=== PATIENT | female | born 1995 | race Caucasian/White ===

== ENCOUNTER 2021-01-13 14:04 | Emergency (ER) | payer OTHER ==
[~2021-01-13 14:04] MED LIST: KEFLEX250 MG PO; LORCET PLUS 7.1 EACH PO; METROGEL 0.75%45 GM VG; NAPROXEN500 MG PO
[2021-01-13 18:51] LABS: BASOPHIL 0.4 % (0-2); EOSINOPHIL 1.3 % (0-5); HGB 11.4 g/dl (12.5-16.0); LYMPHOCYTE 34.8 % (15-48); MCH 28.6 pg (25.0-31.0); MCHC 32.6 g/dL (32.0-36.0); MCV 87.7 fL (78.0-100.0); MONOCYTE 10.6 % (0-12); MPV 10.7 fL (6.0-9.5); NEUTROPHIL 52.7 % (41-80); NRBC 0; PLT 176 K/uL (150-400); RBC 3.99 M/uL (4.20-5.40); RDW 14.6 % (11.5-14.0); WBC 4.5 K/uL (4.0-10.5)
[2021-01-13 19:16] LABS: ALBUMIN 3.4 g/dL (3.4-5.0); BILIRUBIN - TOTAL 0.1 mg/dL (0.2-1.0); BUN/CREAT RATIO (CALC) 12.9 RATIO; CREATININE 0.7 mg/dL (0.51-0.95); GLOBULIN (CALCULATION) 3.5 g/dL; POTASSIUM 3.8 mmol/L (3.5-5.1); TOTAL PROTEIN 6.9 g/dL (6.4-8.2)
[2021-01-13] MEDS ORDERED: PHENERGAN25 M1 PO (19:49)
[2021-01-13] MEDS ORDERED: ULTRAM50 MG PO (19:49)
[2021-01-13] MEDS ORDERED: NAPROXEN500 MG PO (19:49)
[2021-01-13 20:10] LABS: BILIRUBIN NEGATIVE (NEGATIVE); BLOOD NEGATIVE Ery/uL (NEGATIVE); CLARITY CLEAR (CLEAR); COLOR YELLOW (YELLOW); GLUCOSE (U) NORMAL (NORMAL); LEUKOCYTES 1+ Leu/uL (NEGATIVE); NITRITE NEGATIVE (NEGATIVE); PROTEIN NEGATIVE (NEGATIVE); UROBILINOGEN 0.2 mg/dL (0.2-1.0); pH 6.5 (5.0-9.0)
[2021-01-13 20:15] LABS: URINARY WBC RARE
[2021-01-13 20:16] LABS: BACTERIA 1+
== END 2021-01-13 20:10 | disposition home or self-care (01) ==
LOC: FER 14:04
PROVIDERS: Emergency Medicine
DX: R51.9 Headache, unspecified (principal); U07.1 COVID-19; Z88.5 Allergy status to narcotic agent
CPT/HCPCS: 36415; 80053; 81001; 85025; J1170; J1885; J2550; J7030; U0002

== ENCOUNTER 2021-12-19 12:38 | Emergency (ER) | payer OTHER ==
[~2021-12-19 12:38] MED LIST changes: +PHENERGAN25 M1 PO; +ULTRAM50 MG PO
[2021-12-19 13:11] LABS: BILIRUBIN NEGATIVE (NEGATIVE); BLOOD NEGATIVE Ery/uL (NEGATIVE); CLARITY CLEAR (CLEAR); COLOR YELLOW (YELLOW); GLUCOSE (U) NORMAL (NORMAL); LEUKOCYTES 2+ Leu/uL (NEGATIVE); NITRITE NEGATIVE (NEGATIVE); PROTEIN NEGATIVE (NEGATIVE); SPECIFIC GRAVITY 1.025 (1.001-1.030); UROBILINOGEN 0.2 mg/dL (0.2-1.0)
[2021-12-19 13:16] LABS: HCG (URINE) SCREEN NEGATIVE (NEGATIVE)
[2021-12-19 13:20] LABS: BACTERIA 1+
[2021-12-19 13:47] LABS: BASOPHIL 1.3 % (0-2); EOSINOPHIL 1.3 % (0-5); HCT 40.1 % (37.0-47.0); HGB 12.9 g/dl (12.5-16.0); LYMPHOCYTE 37.3 % (15-48); MCH 28.8 pg (25.0-31.0); MCHC 32.2 g/dL (32.0-36.0); MCV 89.5 fL (78.0-100.0); MONOCYTE 16.9 % (0-12); NEUTROPHIL 43.2 % (41-80); NRBC 0; PLT 187 K/uL (150-400); RBC 4.48 M/uL (4.20-5.40); RDW 13.6 % (11.5-14.0); WBC 2.4 K/uL (4.0-10.5)
[2021-12-19 13:54] LABS: BILIRUBIN - TOTAL 0.3 mg/dL (0.2-1.0); BUN/CREAT RATIO (CALC) 11.1 RATIO; CREATININE 0.9 mg/dL (0.51-0.95); POTASSIUM 3.9 mmol/L (3.5-5.1)
[2021-12-19] MEDS ORDERED: CEFDINIR300 MG PO (14:10)
[2021-12-19] MEDS ORDERED: CYCLOBENZAPRINE10 MG PO (14:10)
== END 2021-12-19 14:20 | disposition home or self-care (01) ==
LOC: FER 12:38
PROVIDERS: Physician Assistant
DX: N39.0 Urinary tract infection, site not specified (principal); D72.819 Decreased white blood cell count, unspecified; M54.50 Low back pain, unspecified; Z88.5 Allergy status to narcotic agent
CPT/HCPCS: 36415; 72110; 80053; 81001; 84703; 85025; 87088

== ENCOUNTER 2022-02-12 11:27 | Emergency (ER) | payer OTHER ==
[~2022-02-12 11:27] MED LIST changes: +CEFDINIR300 MG PO; +CYCLOBENZAPRINE10 MG PO
[2022-02-12] MEDS ORDERED: ONDANSETRON ODT4 MG PO (14:05)
[2022-02-12] MEDS ORDERED: CYCLOBENZAPRINE10 MG PO (14:05)
[2022-02-12] MEDS ORDERED: NORCO 5-325 TA1 EACH PO (14:05)
[2022-02-12] MEDS ORDERED: MEDROL 4MG DOSEP4 MG PO (14:05)
== END 2022-02-12 14:20 | disposition home or self-care (01) ==
LOC: FER 11:27
DX: S39.012A Strain of muscle, fascia and tendon of lower back, initial encounter (principal); X58.XXXA Exposure to other specified factors, initial encounter
CPT/HCPCS: 72131; 96372; J1100; J1885